=== PATIENT | female | born 1980 | race Caucasian/White ===

== ENCOUNTER 2016-05-29 23:11 | Emergency (ER) | payer OTHER ==
[2016-05-30 00:03] VITALS: BP 107/47
[2016-05-30] MEDS ORDERED: Morphine INJ* 4 MG/ML 1 ML CARPUJECT IV ONE (00:48)
[2016-05-30] MEDS ORDERED: Ondansetron INJ* 2 MG/ML VIAL IV ONE (00:48)
--- NOTE | 2016-05-30 01:22 | ED ---
Clifton Jacques Anna, scribed for Souleymane Nam MD on 05/30/16 at 0052 . Abdominal Pain/Female - HPI Summary HPI Summary: Patient is a 36 y/o female coming to [facility] presenting with sudden onset of constant, diffuse abdominal pain radiating to her back that began last evening at 2100. She describes the severity of the pain as 10/10. She additionally reports chills and rectal bleeding that also began this evening. The patient has frequent urination, at baseline for her . This is her third , and she is 17 weeks along. Denies fever, hematuria, dysuria, vaginal bleeding. G/P/A is . one incident of bloody stool after bowel movement, none since, no active rectal bleeding - History of Current Complaint Chief Complaint: EDAbdPain Stated Complaint: LOWER BACK AND ABD PAIN/17 WKS PREG Time Seen by Provider: 05/30/16 00:38 Hx Obtained From: Patient ?: Yes Onset/Duration: Sudden Onset Pain Intensity: 10 Allergies/Adverse Reactions: Allergies Allergy/AdvReac Type Severity Reaction Status Date / Time No Known Allergies Allergy Verified 05/29/16 23:27 PMH/Surg Hx/FS Hx/Imm Hx Previously Healthy: Yes - Surgical History Surgery Procedure, Year, and Place: Infectious Disease History: No Infectious Disease History: Denies: Traveled Outside the [place] in Last 30 Days - Family History Known Family History: Positive: Hypertension - Social History Lives: With Family Hx Substance Use: No Substance Use Type: Reports: None Hx Tobacco Use: No Smoking Status (MU): Never Smoked Tobacco Review of Systems Positive: Chills. Negative: Fever Positive: Abdominal Pain. Negative: Vomiting, Nausea Genitourinary: Other - Denies vaginal bleeding Positive: frequency - baseline for , other - rectal bleeding. Negative: dysuria, hematuria Negative: Myalgia, Edema Negative: Rash Neurological: Other - Denies dizziness All Other Systems Reviewed And Are Negative: Yes Physical Exam - Summary Physical Exam Summary: Constitutional: Well-developed, Well-nourished, Alert. Pain Distress. Skin: Warm, Dry HENT: Normocephalic; Atraumatic Eyes: Conjunctiva normal Neck: Musculoskeletal ROM normal neck. (-) JVD, (-) Stridor, (-) Tracheal deviation Cardio: Rhythm regular, rate normal, Heart sounds normal; Intact distal pulses; The pedal pulses are 2+ and symmetric. Radial pulses are 2+ and symmetric. ~(-) Murmur Pulmonary/Chest wall: Effort normal. (-) Respiratory distress, (-) Wheezes, (-) Rales Abd: Bilateral CVA tenderness. Suprapubic and LLQ tenderness., ~(-) Distension, (-) Guarding, (-) Rebound Musculoskeletal: (-) Edema Lymph: (-) Cervical adenopathy Neuro: Alert, Oriented x3 Psych: Mood and affect Normal Triage Information Reviewed: Yes Vital Signs On Initial Exam: Initial Vitals Temp Pulse Resp BP Pulse Ox 99.2 F 100 18 135/118 100 05/29/16 23:24 05/29/16 23:24 05/29/16 23:24 05/29/16 23:24 05/29/16 23:24 Vital Signs Reviewed: Yes Diagnostics - Vital Signs Vital Signs Temp Pulse Resp BP Pulse Ox 05/30/16 00:01 97.5 F 110 30 107/47 100 05/29/16 23:24 99.2 F 100 18 135/118 100 - Laboratory Lab Statement: Any lab studies that have been ordered have been reviewed, and results considered in the medical decision making process. Abdominal Pain Fem Course/Dx - Course Course Of Treatment: Patient is a 36 y/o female coming to [facility] presenting with sudden onset of constant, diffuse abdominal pain radiating to her back that began last evening at 2100. She describes the severity of the pain as 10/10. She additionally reports chills and rectal bleeding that also began this evening. The patient has frequent urination, at baseline for her . This is her third , and she is 17 weeks along. Denies fever, hematuria , dysuria, vaginal bleeding. G/P/A is . Patient will be signed out to Dr. Neil, pending US. - Diagnoses Differential Diagnosis: Positive: Ovarian Cyst, Renal Colic, Other - placental abruption Provider Diagnoses: Abdominal pain, Discharge - Discharge Plan Condition: Stable Disposition: OTHER Discharge Disposition Comment: Patient will be signed out to Dr. Neil, pending US. The documentation as recorded by the Clifton abbasi Anna accurately reflects the service I personally performed and the decisions made by , Souleymane Nam MD.
[2016-05-30 02:09] LABS: Hematocrit 32 % (35-47); Mean Corpuscular HGB Conc 35 g/dl (31-36); Mean Corpuscular Hemoglobin 31 pg (27-31); Mean Corpuscular Volume 89 fL (80-97); Mean Platelet Volume 7 um3 (7.4-10.4); Red Blood Count 3.57 10^6/ul (4.0-5.4); Red Cell Distribution Width 13 % (10.5-15); White Blood Count 13.7 10^3/ul (3.5-10.8)
[2016-05-30 02:26] LABS: Albumin 3.4 g/dL (3.2-5.2); BUN/Creatinine Ratio 22.5 (8-20); Calcium 8.9 mg/dL (8.6-10.3); EGFR African American 232.3 (>60); EGFR Non-African American 180.6 (>60); Globulin 3.2 g/dL (2-4); Potassium 3.2 mmol/L (3.5-5.0); Total Bilirubin 0.3 mg/dL (0.2-1.0); Total Protein 6.6 g/dL (6.4-8.9)
[2016-05-30 03:53] LABS: Urine Bacteria 1+ (Absent); Urine Bilirubin Negative (Negative); Urine Glucose Negative (Negative); Urine Nitrite Negative (Negative)
[2016-05-30] MEDS ORDERED: Nitrofurantoin Macrocrystals* 100 MG CAP PO ONE (05:47)
[2016-05-30] MEDS ORDERED: oxyCODONE/Acetamin 5/325 MG* TAB PO ONE (07:36)
--- NOTE | 2016-05-30 08:04 | RAD ---
Indication: 18 weeks 4 days gestation based on January 21, 2016 LMP. Lower abdominal pain. Assess for placental abruption. Comparison: None. Technique: Limited Transabdominal obstetrical ultrasound. Report: Single intrauterine gestation with observed movement and cardiac activity at 170 bpm. Breech presentation. Qualitatively normal volume of amniotic fluid. The cervical length is 3.6 cm. Fundal placenta without evidence for abruption. Mean BPD: 4.1 cm corresponding to 18 weeks 3 days Mean HC: 15.21 cm corresponding to 18 weeks 2 days Mean AC: 13.07 cm corresponding to 18 weeks 5 days Mean FL: 2.72 cm corresponding to 18 weeks 3 days Composite gestational age: 18 weeks 4 days HC / AC ratio: 1.16 weight: 240 g. +/- 35 g. Anatomic survey not performed. Moderately distended maternal bladder is remarkable for dependent debris. IMPRESSION: Single intrauterine gestation in breech presentation with observed movement and normal heart rate. Estimated gestational age based on this exam is 18 weeks 4 days (AUA). Corresponding BOB October 27, 2016. No evidence for placental abruption.
--- NOTE | 2016-06-01 15:52 | ED ---
Progress - Progress Note Progress Note: Pt's urine cx reveals staph saprophyticus - she was d/c'd w/ nitrofurantoin. Will wait for sens to asses necessity for change in meds. Course/Dx - Course Course Of Treatment: Patient is a 36 y/o female coming to [facility] presenting with sudden onset of constant, diffuse abdominal pain radiating to her back that began last evening at 2100. She describes the severity of the pain as 10/10. She additionally reports chills and rectal bleeding that also began this evening. The patient has frequent urination, at baseline for her . This is her third , and she is 17 weeks along. Denies fever, hematuria , dysuria, vaginal bleeding. G/P/A is . Patient will be signed out to Dr. Neil, pending US. - Diagnoses Provider Diagnoses: Abdominal pain,
== END 2016-05-30 08:45 | disposition home or self-care (01) ==
LOC: ED 23:11
DX: O26.892 Other specified pregnancy related conditions, second trimester (principal); Z3A.17 17 weeks gestation of pregnancy; R10.9 Unspecified abdominal pain
CPT/HCPCS: 36415; 76815; 80053; 81003; 81015; 83690; 85025; 87077; 87086; 96374; 96375; 99283; A9270-GY; J2270; J2405

== ENCOUNTER 2016-10-30 18:07 | Inpatient (IN) | payer OTHER ==
[2016-10-30 21:29] LABS: Hematocrit 38 % (35-47); Hemoglobin 12.6 g/dl (12.0-16.0); Mean Corpuscular HGB Conc 33 g/dl (31-36); Mean Corpuscular Hemoglobin 31 pg (27-31); Mean Corpuscular Volume 92 fL (80-97); Mean Platelet Volume 9 um3 (7.4-10.4); Red Blood Count 4.09 10^6/ul (4.0-5.4); Red Cell Distribution Width 14 % (10.5-15); White Blood Count 8.6 10^3/ul (3.5-10.8)
[2016-10-31] MEDS ORDERED: fentaNYL* 50 MCG/ML 2 ML VIAL (100 MCG VIAL) ONE (03:50)
[2016-10-31] MEDS ORDERED: Sodium Citrate/Citric Acid* 15 ML UDC PO PRN (04:30)
[2016-10-31] MEDS ORDERED: Phenylephrine IV* 40 MCG/ML 10 ML SYRINGE IV PUSH PRN ×2 (04:30)
[2016-10-31] MEDS ORDERED: Famotidine TAB* 20 MG PO PRN (04:30)
[2016-10-31] MEDS ORDERED: Oxytocin in LR* 0 UNITS/0 ML BAG IVPB ONE (06:05)
[2016-10-31] MEDS ORDERED: Witch Hazel PAD* JAR TOPICAL PRN (07:26)
[2016-10-31] MEDS ORDERED: Glycerin ADULT SUPP PR PRN (07:26)
[2016-10-31] MEDS ORDERED: Acetaminophen TAB* 325 MG PO PRN (07:26)
[2016-10-31] MEDS ORDERED: Dibucaine 1% 28.35 GM TUBE PR PRN (07:26)
[2016-10-31] MEDS: Docusate CAP* 100 MG PO SCH ×3 (09:17→21:14)
[2016-10-31] MEDS: Ibuprofen TAB* 600 MG PO PRN ×3 (09:17→21:14)
[2016-10-31] MEDS: Simethicone CHEW TAB* 80 MG PO SCH (21:51)
[2016-11-01] MEDS: Ibuprofen TAB* 600 MG PO PRN ×3 (05:09→20:38)
[2016-11-01 06:08] LABS: Hematocrit 31 % (35-47); Hemoglobin 10.4 g/dl (12.0-16.0); Mean Corpuscular HGB Conc 34 g/dl (31-36); Mean Corpuscular Hemoglobin 31 pg (27-31); Mean Corpuscular Volume 93 fL (80-97); Mean Platelet Volume 9 um3 (7.4-10.4); Red Blood Count 3.37 10^6/ul (4.0-5.4); Red Cell Distribution Width 14 % (10.5-15); White Blood Count 9.5 10^3/ul (3.5-10.8)
[2016-11-01] MEDS ORDERED: Ferrous Gluconate TAB* 324 MG TAB PO SCH (09:00)
[2016-11-01] MEDS: Docusate CAP* 100 MG PO SCH ×3 (09:14→20:38)
[2016-11-02] MEDS: Ibuprofen TAB* 600 MG PO PRN (04:08)
[2016-11-02 08:16] VITALS: BP 106/68
[2016-11-02] MEDS: Docusate CAP* 100 MG PO SCH (08:34)
== END 2016-11-02 11:03 | disposition home or self-care (01) | DRG 775 ==
LOC: MCHOBOUT 18:07 → MCHOB 21:00
PROVIDERS: ADMIT Obstetrics & Gynecology; ATTEND Obstetrics & Gynecology
PROC: 10907ZC Drainage of Amniotic Fluid, Therapeutic from Products of Conception, Via Natural or Artificial Opening (ICD-10-PCS; principal; 2016-10-31)
PROC: 10E0XZZ Delivery of Products of Conception, External Approach (ICD-10-PCS; 2016-10-31)
PROC: 4A1HX4Z Monitoring of Products of Conception, Cardiac Electrical Activity, External Approach (ICD-10-PCS; 2016-10-31)
DX: O69.1XX0 Labor and delivery complicated by cord around neck, with compression, not applicable or unspecified (principal); O77.0 Labor and delivery complicated by meconium in amniotic fluid; Z3A.39 39 weeks gestation of pregnancy; Z37.0 Single live birth; O34.219 Maternal care for unspecified type scar from previous cesarean delivery
CPT/HCPCS: 36415; 85025; 86850; 86900; 86901; A9270-GY; J3010